=== PATIENT | male | born 1960 | race African-American/Black ===

== ENCOUNTER 2018-09-01 14:18 | Emergency (ER) | payer BC, OTHER ==
[~2018-09-01] VITALS: Ht 170.2 cm; Wt 86.2 kg
[2018-09-01 15:20] VITALS: BP 120/69
== END 2018-09-01 15:42 | disposition home or self-care (01) ==
LOC: ER 14:18
DX: R51 Headache (principal); I10 Essential (primary) hypertension; E78.5 Hyperlipidemia, unspecified
CPT/HCPCS: 70450